=== PATIENT | female | born 1950 | race Caucasian/White ===

== ENCOUNTER 2019-05-06 13:17 | Outpatient (CLI) | payer MEDICARE, BC | END 2019-05-06 23:59 | disposition home or self-care (01) | LOC: CFH 13:17 | PROVIDERS: ATTEND Family Medicine | DX: C50.912 Malignant neoplasm of unspecified site of left female breast (principal) | CPT/HCPCS: 77065; G0279 ==

== ENCOUNTER 2019-08-27 15:07 | Outpatient (CLI) | payer MEDICARE, BC ==
[2019-08-27] MEDS ORDERED: GADOTERATE 10 MMOL/20 ML SYR ONE (16:00)
== END 2019-08-27 23:59 | disposition home or self-care (01) ==
LOC: CFH 15:07
PROVIDERS: ATTEND Nurse Practitioner Family
DX: D32.0 Benign neoplasm of cerebral meninges (principal); I72.8 Aneurysm of other specified arteries; F01.50 Vascular dementia, unspecified severity, without behavioral disturbance, psychotic disturbance, mood disturbance, and anxiety; G31.9 Degenerative disease of nervous system, unspecified; I67.1 Cerebral aneurysm, nonruptured; Z86.73 Personal history of transient ischemic attack (TIA), and cerebral infarction without residual deficits
CPT/HCPCS: 70553; A9575

== ENCOUNTER → 2020-02-28 | Outpatient (CLI) | payer MEDICARE, BC | END | disposition home or self-care (01) | LOC: CFH 10:50 | PROVIDERS: ATTEND Internal Medicine | DX: C34.11 Malignant neoplasm of upper lobe, right bronchus or lung (principal); R91.8 Other nonspecific abnormal finding of lung field; C50.911 Malignant neoplasm of unspecified site of right female breast; C43.71 Malignant melanoma of right lower limb, including hip | CPT/HCPCS: 71250 ==

== ENCOUNTER → 2020-09-15 | Outpatient (CLI) | payer MEDICARE, BC | END | disposition home or self-care (01) | LOC: CFH 11:07 | PROVIDERS: ATTEND Internal Medicine | DX: C43.71 Malignant melanoma of right lower limb, including hip (principal); C50.911 Malignant neoplasm of unspecified site of right female breast; C34.11 Malignant neoplasm of upper lobe, right bronchus or lung; M85.80 Other specified disorders of bone density and structure, unspecified site; N95.8 Other specified menopausal and perimenopausal disorders | CPT/HCPCS: 77080 ==

== ENCOUNTER → 2021-03-01 | Outpatient (CLI) | payer MEDICARE | END | disposition home or self-care (01) | LOC: CFH 10:11 | PROVIDERS: ATTEND Internal Medicine | DX: C34.11 Malignant neoplasm of upper lobe, right bronchus or lung (principal); C43.71 Malignant melanoma of right lower limb, including hip; C50.911 Malignant neoplasm of unspecified site of right female breast; M25.852 Other specified joint disorders, left hip; M85.80 Other specified disorders of bone density and structure, unspecified site; N95.9 Unspecified menopausal and perimenopausal disorder | CPT/HCPCS: 71250; 77080 ==